=== PATIENT | male | born 1980 | race Two or more races ===

== ENCOUNTER 2023-12-19 13:21 | Emergency (ER) | payer OTHER ==
[~2023-12-19] VITALS: Ht 175.3 cm; Wt 108.9 kg
[2023-12-19] MEDS ORDERED: TDAP [DIPH/PERTUSSIS/TET] 0.5 ML VIAL IM ONE ×2 (13:50→14:20)
[2023-12-19] MEDS ORDERED: ACETAMINOPHEN ES 500 MG TABLET ONE (13:51)
[2023-12-19] MEDS: ACETAMINOPHEN ES 500 MG TABLET PO ONE (14:09)
[2023-12-19] MEDS: TDAP [DIPH/PERTUSSIS/TET] 0.5 ML VIAL IM ONE (14:10)
[2023-12-19] MEDS ORDERED: LIDOCAINE 1%-EPI 1:100,000 20 ML VIAL ONE (14:21)
[2023-12-19] MEDS: LIDOCAINE 1%-EPI 1:100,000 50 ML VIAL IJ ONE (14:27)
[2023-12-19] MEDS ORDERED: CEPH-570 PO (14:35)
[2023-12-19 14:38] VITALS: BP 152/86; TEMP 98.2; O2SAT 99
== END 2023-12-19 14:38 | disposition home or self-care (01) ==
LOC: ER 13:27
DX: S01.81XA Laceration without foreign body of other part of head, initial encounter (principal); W26.1XXA Contact with sword or dagger, initial encounter; Y93.89 Activity, other specified; Y92.89 Other specified places as the place of occurrence of the external cause; Y99.8 Other external cause status
CPT/HCPCS: 12013; 70450; 90471; 90715; 99285; A6403; J3490